=== PATIENT | male | born 1965 | race African-American/Black ===

== ENCOUNTER 2017-11-17 08:51 | Emergency (ER) | payer OTHER ==
[~2017-11-17] VITALS: Ht 177.8 cm; Wt 94.4 kg
[2017-11-17 09:42] LABS: EOSINOPHIL (%) 1.5 % (0-5); EOSINOPHIL COUNT 0.1 K/uL (0-0.3); HEMATOCRIT 40.6 % (38.0-50.0); HEMOGLOBIN 14.1 G/DL (12.5-16.6); IMMATURE GRANULOCYTE (%) 0.3 % (0.0-0.7); LYMPHOCYTE (%) 50.5 % (15-42); MCH 29.3 PG (29.0-34.0); MCHC 34.7 G/DL (30.0-36.0); MCV 84.2 FL (86-99); MONOCYTE (%) 10.7 % (3-12); MONOCYTE COUNT 0.4 K/uL (0-0.8); NEUTROPHIL COUNT 1.4 K/uL (1.8-6.4); PLATELET COUNT 235 K/uL (156-360); RBC DIS.WIDTH-CV 12.9 % (11.8-14.6); RBC DIS.WIDTH-SD 39.6 % (39-53); RED BLOOD COUNT 4.82 M/uL (4.00-5.50); WHITE BLOOD COUNT 3.9 K/uL (4.1-10.2)
[2017-11-17 09:45] LABS: CHLORIDE 107 mEq/L (99-109); POTASSIUM 4.2 mEq/L (3.7-5.4); SODIUM 140 mEq/L (136-147)
[2017-11-17 09:47] LABS: GLUCOSE 94 mg/dL (70-99)
[2017-11-17 09:51] LABS: CREATININE 0.9 mg/dL (0.6-1.3); GFR ESTIMATE (CALCULATED) > 59 mL/min/ (58.99-99999)
[2017-11-17 09:52] LABS: UREA NITROGEN (BUN) 17 mg/dL (9-23)
[2017-11-17 09:53] LABS: LIPASE 33 U/L (1.0-51.0)
[2017-11-17] MEDS ORDERED: FLEXERIL10 MG PO (11:10)
[2017-11-17] MEDS ORDERED: PERCOCET 5/31 TABLET PO (11:10)
[2017-11-17 11:20] VITALS: BP 123/80
== END 2017-11-17 11:21 | disposition home or self-care (01) ==
LOC: EME 08:51
PROVIDERS: Emergency Medicine
DX: S16.1XXA Strain of muscle, fascia and tendon at neck level, initial encounter (principal); S30.0XXA Contusion of lower back and pelvis, initial encounter; V48.0XXA Car driver injured in noncollision transport accident in nontraffic accident, initial encounter; Y92.410 Unspecified street and highway as the place of occurrence of the external cause; Z87.891 Personal history of nicotine dependence
CPT/HCPCS: 70450; 71045; 72125; 80048; 83690; 85025; 99281; 99283